=== PATIENT | male | born 1990 ===

== ENCOUNTER 2018-01-22 06:58 | Emergency (ER) ==
[2018-01-22] MEDS ORDERED: Cephalexin 500 MG CAP ONE (07:55)
[2018-01-22] MEDS ORDERED: predniSONE 20 MG TAB ONE (07:55)
== END 2018-01-22 08:00 | disposition home or self-care (01) ==
LOC: MADERS 06:58
DX: S90.561A Insect bite (nonvenomous), right ankle, initial encounter (principal); L08.9 Local infection of the skin and subcutaneous tissue, unspecified; W57.XXXA Bitten or stung by nonvenomous insect and other nonvenomous arthropods, initial encounter
CPT/HCPCS: 87070; 87205; 99283; J7506